=== PATIENT | female | born 1960 | race Caucasian/White ===

== ENCOUNTER 2017-05-24 08:34 | Emergency (ER) | payer OTHER ==
[~2017-05-24] VITALS: Ht 154.9 cm; Wt 85.0 kg
[~2017-05-24 08:34] MED LIST: ADVA250A INH; ALBU.5I NEB; ALBUAER3 INH; CYTO5TAB PO; DIAZ5TAB PO; DILA10IN IMPLANPUMP; FURO20TA PO; LEVE500 PO; METO50TA11 PO; PANT40TA3 PO; PLAV75TA29 PO; PROM12.54 PO; ROSU20 PO; SYNT300T PO; ZOFR4TAB PO
[2017-05-24 08:39] VITALS: BP 131/59; PULSE 87; RESP 16; TEMP 98.8; O2SAT 94
--- NOTE | 2017-05-24 09:06 | RADRPT ---
EXAM DATE/TIME: 05/24/2017 08:54 [place] COMPARISON: No previous studies available for comparison. INDICATIONS : Patient fell complains of pain left elbow. MEDICAL HISTORY : None. SURGICAL HISTORY : None. ENCOUNTER: Initial ACUITY: 1 day PAIN SCORE: 8/10 LOCATION: Left lateral Elbow FINDINGS: Multiple view examination of the left elbow demonstrates no soft tissue swelling, joint effusion, or fracture. The osseous structures are in normal alignment. Bony mineralization is normal. CONCLUSION: Negative exam. No fracture or effusion. Channing Arce MD on May 24, 2017 at 9:04 Board Certified Radiologist. This report was verified electronically.
--- NOTE | 2017-05-24 09:15 | PD ---
HPI Chief Complaint: Fall Time Seen by Provider: 08:54 Travel History International Travel<30 days: No Contact w/Intl Traveler<30days: No Traveled to known affect area: No History of Present Illness HPI The patient was seen and examined in the presence of the nurse. This patient complains of left elbow injury. Duration 5 hours. Approximate for him she got up to use the restroom from sleeping. She got tangled up and tripped over her cane. She landed on her left elbow. She has bruising and swelling there. Denies head injury. PFSH Past Medical History Hx Anticoagulant Therapy: Yes Anemia: Yes Arthritis: Yes (RA) Asthma: Yes Autoimmune Disease: Yes Blood Disorders: Yes ( BLEEDING ULCER ) Bipolar Disorder: Yes Anxiety: Yes Depression: Yes Heart Rhythm Problems: Yes (palpitations) Cancer: No Cardiovascular Problems: Yes High Cholesterol: Yes Chemotherapy: No Chest Pain: No Congestive Heart Failure: No COPD: Yes Cerebrovascular Accident: Yes Diabetes: Yes Diminished Hearing: No Endocrine: Yes Fibromyalgia: Yes Gastrointestinal Disorders: Yes (10 COLONOSCOPIES FOR GI BLEEDING) GERD: Yes Genitourinary: No Headaches: Yes Hepatitis: Yes (HEP C) Hiatal Hernia: Yes (GERD) Herniated Disk: Yes Hypertension: Yes Immune Disorder: Yes (RA) Implanted Vascular Access Dvce: Yes Kidney Stones: No Musculoskeletal: Yes (CHRONIC PAIN, DJD) Neurologic: Yes (BRAIN TUMOR) Psychiatric: Yes (POLYSUBSTANCE ABUSE. 06/04/11 pt denies??) Respiratory: Yes (COPD) Immunizations Current: No Migraines: No Myocardial Infarction: No Pancreatitis: Yes Radiation Therapy: Yes (2003 to thyroid) Seizures: Yes Sleep Apnea: Yes Thyroid Disease: Yes (IRRADIATED) Ulcer: Yes (BLEEDING ULCER) PNEUMOCCOCAL Vaccine (Year): 2010 Menopausal: Yes : 2 Para: 2 Miscarriage: 0 : 0 Tubal Ligation: Yes Past Surgical History Abdominal Surgery: Yes (GASTRECTOMY) AICD: No Appendectomy: No Arteriovenous Shunt: No Body Medical Devices: METAL PLATE IN NECK, PAIN PUMPED - DILAUDID Cardiac Surgery: No Cholecystectomy: No Ear Surgery: No Endocrine Surgery: Yes (THYROID RADIATION IN ) Eye Surgery: No Genitourinary Surgery: Yes Gynecologic Surgery: Yes (LUMPECTOMY) Hysterectomy: Yes Insulin Pump: No Joint Replacement: No Neurologic Surgery: Yes (CERVICAL FUSION ) Oral Surgery: Yes (GUM SX, TRACH) Pacemaker: No Thoracic Surgery: No Other Surgery: Yes ( trach 2007; breast tumor removed 1998, PAIN PUMP-DILAUDID) Social History Alcohol Use: No Tobacco Use: Yes (08/26 PPD and also use the vapor E- cigarette) Substance Use: No (DENIES ) Allergies-Medications (Allergen,Severity, Reaction): Coded Allergies: amcinonide (Unverified Allergy, Severe, SEIZURE, 05/24/17) beclomethasone (Unverified Allergy, Severe, SEIZURE, 05/24/17) betamethasone (Unverified Allergy, Severe, SEIZURE, 05/24/17) bupropion (Unverified Allergy, Severe, seizure, 05/24/17) celecoxib (Unverified Allergy, Severe, itch, 05/24/17) cyclobenzaprine (Unverified Allergy, Severe, SEIZURES, 05/24/17) desoximetasone (Unverified Allergy, Severe, SEIZURE, 05/24/17) dexamethasone (Unverified Allergy, Severe, SEIZURE, 05/24/17) fludrocortisone (Unverified Allergy, Severe, SEIZURE, 05/24/17) flunisolide (Unverified Allergy, Severe, SEIZURE, 05/24/17) fluocinolone acetonide (Unverified Allergy, Severe, SEIZURE, 05/24/17) fluocinonide (Unverified Allergy, Severe, SEIZURE, 05/24/17) fluorometholone (Unverified Allergy, Severe, SEIZURE, 05/24/17) flurandrenolide (Unverified Allergy, Severe, SEIZURE, 05/24/17) fluticasone (Unverified Allergy, Severe, SEIZURE, 05/24/17) PATIENT STATES NOT ALLERGIC TO THIS MED fluticasone furoate (Unverified Allergy, Severe, SEIZURE, 05/24/17) PATIENT STATES NOT ALLERGIC TO THIS MED haloperidol (Unverified Allergy, Severe, SEIZURE, 05/24/17) hydrocortisone (Unverified Allergy, Severe, SEIZURE, 05/24/17) methylprednisolone (Unverified Allergy, Severe, SEIZURE, 05/24/17) mometasone furoate (Unverified Allergy, Severe, SEIZURE, 05/24/17) prednisolone (Unverified Allergy, Severe, SEIZURE, 05/24/17) prednisone (Unverified Allergy, Severe, SEIZURE, 05/24/17) pregabalin (Unverified Allergy, Severe, swelling, 05/24/17) salmeterol (Unverified Allergy, Severe, "WHEEZES", 05/24/17) PATIENT STATES NOT ALLERGIC TO THIS MED triamcinolone (Unverified Allergy, Severe, SEIZURE, 05/24/17) valdecoxib (Unverified Allergy, Severe, itch, 05/24/17) diclofenac (Unverified Adverse Reaction, Severe, ABD PAIN, 05/24/17) etodolac (Unverified Adverse Reaction, Severe, ABD PAIN, 05/24/17) flurbiprofen (Unverified Adverse Reaction, Severe, ABD PAIN, 05/24/17) ibuprofen (Unverified Adverse Reaction, Severe, ABD PAIN, 05/24/17) indomethacin (Unverified Adverse Reaction, Severe, ABD PAIN, 05/24/17) ketoprofen (Unverified Adverse Reaction, Severe, ABD PAIN, 05/24/17) ketorolac (Unverified Adverse Reaction, Severe, ABD PAIN, 05/24/17) naproxen (Unverified Adverse Reaction, Severe, ABD PAIN, 05/24/17) oxaprozin (Unverified Adverse Reaction, Severe, ABD PAIN, 05/24/17) Reported Meds & Prescriptions Reported Meds & Active Scripts Active Reported Synthroid (Levothyroxine Sodium) 300 Mcg Tab 300 Mcg PO DAILY Crestor (Rosuvastatin Calcium) 20 Mg Tab 20 Mg PO DAILY Promethazine (Promethazine HCl) 12.5 Mg Tab 12.5 Mg PO Q6H PRN Pantoprazole (Pantoprazole Sodium) 40 Mg Tab 40 Mg PO DAILY Zofran (Ondansetron HCl) 4 Mg Tab 4 Mg PO Q8HR PRN Metoprolol Succinate ER 24 HR (Metoprolol Succinate) 50 Mg Tab 100 Mg PO DAILY Cytomel (Liothyronine Sodium) 5 Mcg Tab 5 Mcg PO DAILY Keppra (Levetiracetam) 500 Mg Tab 500 Mg PO BID Dilaudid-Hp Inj (Hydromorphone HCl) 10 Mg/Ml Inj 2 Mg IMPLANPUMP Furosemide 20 Mg Tab 20 Mg PO DAILY Diazepam 5 Mg Tab 5 Mg PO TID PRN Plavix (Clopidogrel Bisulfate) 75 Mg Tab 75 Mg PO DAILY Albuterol Neb (Albuterol Sulfate) 2.5 Mg/0.5 Ml Neb 2.5 Mg NEB Q4HR NEB PRN Note: The Albuterol Sulfate Inhalation Solution is concentrated and must be diluted. Read complete instructions carefully before using. Proair Hfa 8.5 GM Inh (Albuterol Sulfate) 90 Mcg/Act Aer 2 Puff INH Q4-6H PRN 108 mcg/actuation Advair Diskus Inh (Fluticasone-Salmeterol Inh) 250-50 Mcg/Blist Aer 1 Puff INH BID Rinse mouth after use. Review of Systems General / Constitutional: No: Fever HENT: No: Headaches Cardiovascular: No: Chest Pain or Discomfort Respiratory: No: Cough Physical Exam Narrative Left elbow: There is some bruising and swelling in the region but decent range of motion and no specific bony tenderness. Pulse and sensation intact in the left arm SKIN: Focused skin assessment reveals no rash or ulcers. Skin is warm and dry. Palpation shows no induration or nodules. GASTROINTESTINAL: Abdomen soft, non-tender, nondistended. Positive bowel sounds. No hepato-splenomegaly, or palpable masses. No guarding. Data Data Last Documented VS Vital Signs Date Time Temp Pulse Resp B/P (MAP) Pulse Ox O2 Delivery O2 Flow Rate FiO2 05/24/17 08:39 98.8 87 16 131/59 (83) 94 Orders Orders Elbow, Complete (4 Vws) (05/24/17 08:42) MDM Medical Decision Making Medical Screen Exam Complete: Yes Emergency Medical Condition: Yes Medical Record Reviewed: Yes Differential Diagnosis Elbow fracture, elbow dislocation, contusion Narrative Course I have reviewed the patient's electronic medical record. She has baseline lethargy from overmedication and polypharmacy She falls frequently She had a fall today but no fracture. Supportive care is discussed. Gradual resolution to baseline is expected. Hopefully at some point this patient will work toward getting off all of these sedating medications Diagnosis Primary Impression: Left elbow contusion Qualified Codes: S50.02XA - Contusion of left elbow, initial encounter Additional Instructions: The patient was advised to follow up with their physician and return if they worsen. Ice and elevate and rest left elbow Recommend reduction in sedating medication Recommended walker use giving your frequent falling Med/Other Pt SpecificInfo: Other Disposition: 01 DISCHARGE HOME Condition: Stable Samuel Toledo MD May 24, 2017 09:15
[2017-05-24] MEDS ORDERED: DILA1LIQ PO (09:19)
[2017-05-31] MEDS ORDERED: FURO40TA PO (14:52)
[2017-05-31] MEDS ORDERED: LEVO-86 PO (14:52)
[2017-05-31] MEDS ORDERED: LIOT50TA2 PO (14:52)
[2017-06-01] MEDS ORDERED: TYLE325T PO (12:28)
[2017-06-01] MEDS ORDERED: DIPH25CA PO (12:30)
[2017-06-01] MEDS ORDERED: FURO10IN IV PUSH (12:33)
== END 2017-05-24 09:32 | disposition home or self-care (01) ==
LOC: PHED 08:34
DX: S50.02XA Contusion of left elbow, initial encounter (principal); W01.0XXA Fall on same level from slipping, tripping and stumbling without subsequent striking against object, initial encounter; Z79.01 Long term (current) use of anticoagulants; Z86.73 Personal history of transient ischemic attack (TIA), and cerebral infarction without residual deficits; I10 Essential (primary) hypertension; J44.9 Chronic obstructive pulmonary disease, unspecified; B19.20 Unspecified viral hepatitis C without hepatic coma; E11.9 Type 2 diabetes mellitus without complications; E78.00 Pure hypercholesterolemia, unspecified; M79.7 Fibromyalgia; F17.210 Nicotine dependence, cigarettes, uncomplicated
CPT/HCPCS: 73080; 99283

== ENCOUNTER 2017-07-11 14:12 | Emergency (ER) | payer OTHER ==
[~2017-07-11] VITALS: Ht 154.9 cm; Wt 80.0 kg
[~2017-07-11 14:12] MED LIST changes: -CYTO5TAB PO; -DILA10IN IMPLANPUMP; +DIPH25CA PO; +FURO10IN IV PUSH; -FURO20TA PO; +FURO40TA PO; +LEVO-86 PO; +LIOT50TA2 PO; +METO1TAB9 PO; -METO50TA11 PO; -SYNT300T PO; +TYLE325T PO
[2017-07-11 14:22] VITALS: BP 98/54; PULSE 70; RESP 16; TEMP 98.1; O2SAT 95
[2017-07-11] MEDS ORDERED: SODIUM CHLOR 0.9% 1000 ML INJ 1,000 ML IV ONE (14:40)
[2017-07-11] MEDS ORDERED: SODIUM CHLORIDE 0.9% FLUSH 10 ML FLUSH IVF PRN (14:45)
--- NOTE | 2017-07-11 14:46 | PD ---
HPI Chief Complaint: Fall Time Seen by Provider: 14:28 Travel History International Travel<30 days: No Contact w/Intl Traveler<30days: No Traveled to known affect area: No History of Present Illness HPI The patient is a 56-year-old female who presents to the emergency department after a fall at home. The patient has a history of multiple chronic medical problems including seizures and chronic pain, states she recently had a pain pump placed that provides Dilaudid for her chronic pain. The patient also states she is placed on hospice because of her multiple comorbidities and need for help at home. The patient normally walks with a cane and/or walker. The patient states he tripped and fell last night wall walking with her cane, fell forward, landing on a tile and would 4. She is unsure if there was a loss of consciousness. She does complain of a right sided headache as well as right periorbital edema. She is able to see out of the right eye, however, now notes it is significantly swollen. She does also note some left toe pain over the fifth digital left toe which was bleeding initially, but is currently resolved. She denies any chest pain, shortness breath, nausea, vomiting, or abdominal pain. She does have a history of symptomatic anemia and recently underwent transfusion 3 weeks ago. She does state she's had a previous surgery where they removed the lower half of her stomach secondary to bleeding, but was advised it was too risky to perform a follow-up endoscopy. Patient does complain of multiple old contusions on the right upper extremity from her previous fall but denies any difficulties in the right upper extremity. The patient's hand rug cleaner was Dr. Gallegos and her primary physician is at [facility] [place]. The patient does take Keppra and Dilantin for history of seizures. She also notes a history of low sodium. PFSH Past Medical History Hx Anticoagulant Therapy: Yes Anemia: Yes Arthritis: Yes (RA) Asthma: Yes Autoimmune Disease: Yes Blood Disorders: Yes ( BLEEDING ULCER ) Bipolar Disorder: Yes Anxiety: Yes Depression: Yes Heart Rhythm Problems: Yes (palpitations) Cancer: No Cardiovascular Problems: Yes High Cholesterol: Yes Chemotherapy: No Chest Pain: No Congestive Heart Failure: Yes COPD: Yes Cerebrovascular Accident: Yes Diabetes: Yes Diminished Hearing: No Endocrine: Yes Fibromyalgia: Yes Gastrointestinal Disorders: Yes (10 COLONOSCOPIES FOR GI BLEEDING) GERD: Yes Genitourinary: No Headaches: Yes Hepatitis: Yes (HEP C) Hiatal Hernia: Yes (GERD) Herniated Disk: Yes Hypertension: Yes Immune Disorder: Yes (RA) Implanted Vascular Access Dvce: Yes Kidney Stones: No Musculoskeletal: Yes (CHRONIC PAIN, DJD) Neurologic: Yes (BRAIN TUMOR) Psychiatric: Yes (POLYSUBSTANCE ABUSE. 06/04/11 pt denies??) Reproductive: No Respiratory: Yes (COPD) Immunizations Current: No Migraines: No Myocardial Infarction: No Pancreatitis: Yes Radiation Therapy: Yes (2003 to thyroid) Renal Failure: No Seizures: Yes Sleep Apnea: Yes Thyroid Disease: Yes (IRRADIATED) Ulcer: Yes (BLEEDING ULCER) PNEUMOCCOCAL Vaccine (Year): 2010 Menopausal: Yes : 2 Para: 2 Miscarriage: 0 : 0 Tubal Ligation: Yes Past Surgical History Abdominal Surgery: Yes (GASTRECTOMY) AICD: No Appendectomy: No Arteriovenous Shunt: No Body Medical Devices: METAL PLATE IN NECK, PAIN PUMPED - DILAUDID Cardiac Surgery: Yes (STENT) Cholecystectomy: No Coronary Stent: Yes Ear Surgery: No Endocrine Surgery: Yes (THYROID RADIATION IN ) Eye Surgery: No Genitourinary Surgery: Yes Gynecologic Surgery: Yes (LUMPECTOMY) Hysterectomy: Yes Insulin Pump: No Joint Replacement: No Neurologic Surgery: Yes (CERVICAL FUSION ) Oral Surgery: Yes (GUM SX, TRACH) Pacemaker: No Thoracic Surgery: No Other Surgery: Yes ( trach 2007; breast tumor removed 1998, PAIN PUMP-DILAUDID) Social History Alcohol Use: No Tobacco Use: Yes (08/26 PPD and also use the vapor E- cigarette) Substance Use: No (DENIES ) Allergies-Medications (Allergen,Severity, Reaction): Coded Allergies: amcinonide (Verified Allergy, Severe, SEIZURE, 07/11/17) beclomethasone (Verified Allergy, Severe, SEIZURE, 07/11/17) betamethasone (Verified Allergy, Severe, SEIZURE, 07/11/17) bupropion (Verified Allergy, Severe, seizure, 07/11/17) celecoxib (Verified Allergy, Severe, itch, 07/11/17) cyclobenzaprine (Verified Allergy, Severe, SEIZURES, 07/11/17) desoximetasone (Verified Allergy, Severe, SEIZURE, 07/11/17) dexamethasone (Verified Allergy, Severe, SEIZURE, 07/11/17) fludrocortisone (Verified Allergy, Severe, SEIZURE, 07/11/17) flunisolide (Verified Allergy, Severe, SEIZURE, 07/11/17) fluocinolone acetonide (Verified Allergy, Severe, SEIZURE, 07/11/17) fluocinonide (Verified Allergy, Severe, SEIZURE, 07/11/17) fluorometholone (Verified Allergy, Severe, SEIZURE, 07/11/17) flurandrenolide (Verified Allergy, Severe, SEIZURE, 07/11/17) fluticasone (Verified Allergy, Severe, SEIZURE, 07/11/17) PATIENT STATES NOT ALLERGIC TO THIS MED fluticasone furoate (Verified Allergy, Severe, SEIZURE, 07/11/17) PATIENT STATES NOT ALLERGIC TO THIS MED haloperidol (Verified Allergy, Severe, SEIZURE, 07/11/17) hydrocortisone (Verified Allergy, Severe, SEIZURE, 07/11/17) methylprednisolone (Verified Allergy, Severe, SEIZURE, 07/11/17) mometasone furoate (Verified Allergy, Severe, SEIZURE, 07/11/17) prednisolone (Verified Allergy, Severe, SEIZURE, 07/11/17) prednisone (Verified Allergy, Severe, SEIZURE, 07/11/17) pregabalin (Verified Allergy, Severe, swelling, 07/11/17) salmeterol (Verified Allergy, Severe, "WHEEZES", 07/11/17) PATIENT STATES NOT ALLERGIC TO THIS MED triamcinolone (Verified Allergy, Severe, SEIZURE, 07/11/17) valdecoxib (Verified Allergy, Severe, itch, 07/11/17) diclofenac (Verified Adverse Reaction, Severe, ABD PAIN, 07/11/17) etodolac (Verified Adverse Reaction, Severe, ABD PAIN, 07/11/17) flurbiprofen (Verified Adverse Reaction, Severe, ABD PAIN, 07/11/17) ibuprofen (Verified Adverse Reaction, Severe, ABD PAIN, 07/11/17) indomethacin (Verified Adverse Reaction, Severe, ABD PAIN, 07/11/17) ketoprofen (Verified Adverse Reaction, Severe, ABD PAIN, 07/11/17) ketorolac (Verified Adverse Reaction, Severe, ABD PAIN, 07/11/17) naproxen (Verified Adverse Reaction, Severe, ABD PAIN, 07/11/17) oxaprozin (Verified Adverse Reaction, Severe, ABD PAIN, 07/11/17) Reported Meds & Prescriptions Reported Meds & Active Scripts Active Reported Furosemide Inj (Furosemide) 10 Mg/Ml Inj 20 Mg IV PUSH ONCE PRN Diphenhydramine (Diphenhydramine HCl) 25 Mg Cap 50 Mg PO ONCE PRN Tylenol (Acetaminophen) 325 Mg Tab 325 Mg PO ONCE PRN Liothyronine (Liothyronine Sodium) 50 Mcg Tab 50 Mcg PO DAILY Synthroid (Levothyroxine Sodium) 137 Mcg Tab 137 Mcg PO DAILY Furosemide 40 Mg Tab 40 Mg PO DAILY Crestor (Rosuvastatin Calcium) 20 Mg Tab 20 Mg PO DAILY Promethazine (Promethazine HCl) 12.5 Mg Tab 12.5 Mg PO Q6H PRN Pantoprazole (Pantoprazole Sodium) 40 Mg Tab 40 Mg PO DAILY Zofran (Ondansetron HCl) 4 Mg Tab 4 Mg PO Q8HR PRN Metoprolol Succinate ER 24 HR (Metoprolol Succinate) 50 Mg Tab 100 Mg PO DAILY Keppra (Levetiracetam) 500 Mg Tab 500 Mg PO BID Diazepam 5 Mg Tab 5 Mg PO TID PRN Plavix (Clopidogrel Bisulfate) 75 Mg Tab 75 Mg PO DAILY Albuterol Neb (Albuterol Sulfate) 2.5 Mg/0.5 Ml Neb 2.5 Mg NEB Q4HR NEB PRN Note: The Albuterol Sulfate Inhalation Solution is concentrated and must be diluted. Read complete instructions carefully before using. Proair Hfa 8.5 GM Inh (Albuterol Sulfate) 90 Mcg/Act Aer 2 Puff INH Q4-6H PRN 108 mcg/actuation Advair Diskus Inh (Fluticasone-Salmeterol Inh) 250-50 Mcg/Blist Aer 1 Puff INH BID Rinse mouth after use. Review of Systems Except as stated in HPI: all other systems reviewed are Neg Eyes: No: Blurred Vision HENT: Positive: Headaches, Lightheadedness, Neck Pain Cardiovascular: No: Chest Pain or Discomfort Respiratory: No: Shortness of Breath Gastrointestinal: No: Nausea, Vomiting, Abdominal Pain Musculoskeletal: Positive: Myalgias Neurologic: Positive: Dizziness, Headache, No: Change in Mentation Physical Exam Narrative GENERAL: Awake, alert, nontoxic-appearing 56 year-old female appears her stated age and is in no acute respiratory distress. SKIN: Focused skin assessment warm/dry. HEAD: Patient has a large area of ecchymosis and swelling over the right periorbital area. Ecchymosis is noted over the right frontal and right temporal area. EYES: Patient does have significant right periorbital edema. However, cannot visualize any subconjunctival hemorrhage on the right. The right and left pupil up with 3 mm and reactive. EOMs out of the right eye. Be intact. She is able to see fingers at a distance of 2 feet from both eyes. ENT: No nasal bleeding or discharge. Mucous membranes pink and moist. NECK: Trachea midline. No JVD. No tenderness of the midline cervical area. CARDIOVASCULAR: Regular rate and rhythm. No murmur appreciated. RESPIRATORY: No accessory muscle use. Clear to auscultation. Breath sounds equal bilaterally. GASTROINTESTINAL: Abdomen soft, non-tender, nondistended. No rebound tenderness. MUSCULOSKELETAL: Old appearing ecchymosis noted of the right humerus. Small superficial puncture wound over the fifth digital left foot, but she is nontender over the affected area. NEUROLOGICAL: Awake and alert. No obvious cranial nerve deficits. Motor grossly within normal limits. Normal speech. Nonfocal. Oriented to person and place. PSYCHIATRIC: Appropriate mood and affect; insight and judgment normal. Data Data Last Documented VS Vital Signs Date Time Temp Pulse Resp B/P (MAP) Pulse Ox O2 Delivery O2 Flow Rate FiO2 07/11/17 16:18 61 16 121/54 (76) 98 Nasal Cannula 2.00 07/11/17 14:22 98.1 Orders Orders Complete Blood Count With Diff (07/11/17 14:40) Alcohol (Ethanol) (07/11/17 14:40) Phenytoin (Dilantin) (07/11/17 14:40) Ct Brain W/O Iv Contrast(Rout) (07/11/17 ) Blood Glucose (07/11/17 14:40) Ecg Monitoring (07/11/17 14:40) Iv Access Insert/Monitor (07/11/17 14:40) Oximetry (07/11/17 14:40) Comprehensive Metabolic Panel (07/11/17 14:40) Sodium Chlor 0.9% 1000 Ml Inj (Ns 1000 M (07/11/17 14:40) Sodium Chloride 0.9% Flush (Ns Flush) (07/11/17 14:45) Urinalysis - C+S If Indicated (07/11/17 14:40) Ct Facial Bones W/O Iv Cont (07/11/17 ) Ct Cerv Spine W/O Contrast (07/11/17 ) Tetanus/Diphtheria Tox Adult (Tetanus/Di (07/11/17 15:00) Ed Discharge Order (07/11/17 16:49) Labs Laboratory Tests Test 07/11/17 15:40 White Blood Count 5.7 TH/MM3 Red Blood Count 3.86 MIL/MM3 Hemoglobin 9.9 GM/DL Hematocrit 31.0 % Mean Corpuscular Volume 80.3 FL Mean Corpuscular Hemoglobin 25.6 PG Mean Corpuscular Hemoglobin Concent 31.9 % Red Cell Distribution Width 19.4 % Platelet Count 203 TH/MM3 Mean Platelet Volume 8.4 FL Neutrophils (%) (Auto) 49.1 % Lymphocytes (%) (Auto) 36.5 % Monocytes (%) (Auto) 8.3 % Eosinophils (%) (Auto) 3.4 % Basophils (%) (Auto) 2.7 % Neutrophils # (Auto) 2.7 TH/MM3 Lymphocytes # (Auto) 2.1 TH/MM3 Monocytes # (Auto) 0.5 TH/MM3 Eosinophils # (Auto) 0.2 TH/MM3 Basophils # (Auto) 0.2 TH/MM3 CBC Comment DIFF FINAL Differential Comment Blood Urea Nitrogen 5 MG/DL Creatinine 0.31 MG/DL Random Glucose 80 MG/DL Total Protein 6.2 GM/DL Albumin 3.1 GM/DL Calcium Level 8.1 MG/DL Alkaline Phosphatase 291 U/L Aspartate Amino Transf (AST/SGOT) 25 U/L Alanine Aminotransferase (ALT/SGPT) 22 U/L Total Bilirubin 0.2 MG/DL Sodium Level 137 MEQ/L Potassium Level 3.7 MEQ/L Chloride Level 102 MEQ/L Carbon Dioxide Level 29.8 MEQ/L Anion Gap 5 MEQ/L Estimat Glomerular Filtration Rate 222 ML/MIN Phenytoin (Dilantin) Level 1.5 MCG/ML Ethyl Alcohol Level LESS THAN 3 MG/DL MDM Medical Decision Making Medical Screen Exam Complete: Yes Emergency Medical Condition: Yes Medical Record Reviewed: Yes Interpretation(s) CT of the brain reveals scalp soft tissue swelling and hematoma. Brain normal. CT of the facial bones reveals prominent soft tissue swelling without evidence for acute fracture. CT of the cervical spine reveals degenerative changes noted without evidence for fracture. Last Impressions Maxillofacial CT 07/11/17 0000 Signed Impressions: Service Date/Time: Tuesday, July 11, 2017 15:02 - CONCLUSION: Prominent soft tissue spine without evidence for acute fracture. Robby Sky MD Head CT 07/11/17 0000 Signed Impressions: Service Date/Time: Tuesday, July 11, 2017 15:02 - CONCLUSION: Scalp soft tissue swelling and hematoma. Brain normal. Robby Sky MD Cervical Spine CT 07/11/17 0000 Signed Impressions: Service Date/Time: Tuesday, July 11, 2017 15:02 - CONCLUSION: Degenerative changes are noted without evidence for fracture. Robby Sky MD Laboratory Tests Test 07/11/17 15:40 White Blood Count 5.7 TH/MM3 Red Blood Count 3.86 MIL/MM3 Hemoglobin 9.9 GM/DL Hematocrit 31.0 % Mean Corpuscular Volume 80.3 FL Mean Corpuscular Hemoglobin 25.6 PG Mean Corpuscular Hemoglobin Concent 31.9 % Red Cell Distribution Width 19.4 % Platelet Count 203 TH/MM3 Mean Platelet Volume 8.4 FL Neutrophils (%) (Auto) 49.1 % Lymphocytes (%) (Auto) 36.5 % Monocytes (%) (Auto) 8.3 % Eosinophils (%) (Auto) 3.4 % Basophils (%) (Auto) 2.7 % Neutrophils # (Auto) 2.7 TH/MM3 Lymphocytes # (Auto) 2.1 TH/MM3 Monocytes # (Auto) 0.5 TH/MM3 Eosinophils # (Auto) 0.2 TH/MM3 Basophils # (Auto) 0.2 TH/MM3 CBC Comment DIFF FINAL Differential Comment Blood Urea Nitrogen 5 MG/DL Creatinine 0.31 MG/DL Random Glucose 80 MG/DL Total Protein 6.2 GM/DL Albumin 3.1 GM/DL Calcium Level 8.1 MG/DL Alkaline Phosphatase 291 U/L Aspartate Amino Transf (AST/SGOT) 25 U/L Alanine Aminotransferase (ALT/SGPT) 22 U/L Total Bilirubin 0.2 MG/DL Sodium Level 137 MEQ/L Potassium Level 3.7 MEQ/L Chloride Level 102 MEQ/L Carbon Dioxide Level 29.8 MEQ/L Anion Gap 5 MEQ/L Estimat Glomerular Filtration Rate 222 ML/MIN Phenytoin (Dilantin) Level 1.5 MCG/ML Ethyl Alcohol Level LESS THAN 3 MG/DL Differential Diagnosis Differential diagnosis includes closed head injury, intracranial hemorrhage, facial fracture, abrasion, contusion, symptomatic anemia, hyponatremia, supratherapeutic Dilantin level. Narrative Course IV was established, labs are drawn and sent, and the patient was placed on cardiac telemetry monitoring and continuous pulse oximetry monitoring. CT of the brain, facial bones, and cervical spine were obtained. Sodium level and H& H were sent to lab. Dilantin level was sent to lab. The patient was placed on IV fluids. The patient's hemoglobin was 9.9, previous hemoglobin was 10.1 on June 01, 2017. CT of the brain, facial bones, cervical spine revealed degenerative changes and soft tissue swelling but no acute hemorrhage or fracture. The patient sodium level is normal. Dilantin level was low, 1.5, I do not believe the patient's symptoms are related to hyponatremia or subtherapeutic Dilantin level. Patient is on multiple medications including her pain pump, she may be overmedicated. She is advised to follow-up with her pain interventional list regards to her medications and the fact they could be sedating. The patient be discharged home. Diagnosis Primary Impression: Closed head injury Qualified Codes: S09.90XA - Unspecified injury of head, initial encounter Additional Impressions: Traumatic periorbital ecchymosis of right eye Qualified Codes: S05.11XA - Contusion of eyeball and orbital tissues, right eye, initial encounter Fall due to stumbling Qualified Codes: W01.0XXA - Fall on same level from slipping, tripping and stumbling without subsequent striking against object, initial encounter Patient Instructions: General Instructions Additional Instructions: Please provide the patient a copy of her CT results and lab results at discharge. Follow-up with your pain interventional list. Return if symptoms worsen or progress. Med/Other Pt SpecificInfo: No Change to Meds Disposition: 01 DISCHARGE HOME Condition: Stable Ion Mena MD Jul 11, 2017 14:46
[2017-07-11] MEDS ORDERED: TETANUS/DIPHTHERIA TOXOID ADULT 0.5 ML VIAL IM ONE (15:00)
--- NOTE | 2017-07-11 15:18 | RADRPT ---
EXAM DATE/TIME: 07/11/2017 15:02 [facility] COMPARISON: CT BRAIN W/O CONTRAST, July 08, 2016, 0:58. INDICATIONS : Stubbed toe and fell. Right periorbital contusion and headache. RADIATION DOSE: 58.19 CTDIvol (mGy) MEDICAL HISTORY : Cerebrovascular disease. Cardiovascular disease Gastroesophageal reflux disease.Anticoagulant therapy . Hypertension. Ulcers. Colitis. SURGICAL HISTORY : Fusion, cervical. Coronary artery stent.Hysterectomy.Gastrectomy. ENCOUNTER: Initial ACUITY: 2 days PAIN SCALE: 6/10 LOCATION: Right cranial TECHNIQUE: Multiple contiguous axial images were obtained of the head. Using automated exposure control and adj ustment of the mA and/or kV according to patient size, radiation dose was kept as low as reasonably a chievable to obtain optimal diagnostic quality images. DICOM format image data is available electro nically for review and comparison. FINDINGS: There is right periorbital soft tissue swelling. The brain is normal in appearance. No hemorrhage, in farct, or mass. A right greater than left frontal scalp hematoma is identified. There are no fracture s. Mastoid air cells are well aerated CONCLUSION: Scalp soft tissue swelling and hematoma. Brain normal. Robby Sky MD on July 11, 2017 at 15:16 Board Certified Radiologist. This report was verified electronically.
--- NOTE | 2017-07-11 15:20 | RADRPT ---
EXAM DATE/TIME: 07/11/2017 15:02 [facility] COMPARISON: No previous studies available for comparison. INDICATIONS : Stubbed toe and fell. Right periorbital contusion and headache. RADIATION DOSE: 25.68 CTDIvol (mGy) MEDICAL HISTORY : Cardiovascular disease. Cerebrovascular disease. Gastroesophageal reflux disease.Anticoagulant thera py. Hypertension. Ulcers. Colitis. SURGICAL HISTORY : Fusion, cervical. Hysterectomy.Coronary artery stent.Gastrectomy. ENCOUNTER: Initial ACUITY: 2 days PAIN SCORE: 6/10 LOCATION: Right facial TECHNIQUE: Volumetric scanning of the facial bones was performed. Using automated exposure control and adjustme nt of the mA and/or kV according to patient size, radiation dose was kept as low as reasonably achiev able to obtain optimal diagnostic quality images. DICOM format image data is available electronicall y for review and comparison. FINDINGS: ORBITS: The orbital and infraorbital osseous structures are intact. The retroconal structures have a normal configuration. No radiopaque foreign bodies are seen. NASAL BONE: The nasal bone and maxillary spine are intact ZYGOMATIC ARCHES: Symmetric without evidence of fracture. SINUSES: The maxillary, ethmoid and frontal sinuses are intact. No air-fluid levels seen. NASAL CAVITY: The nasal septum is intact and midline. The lacrimal ducts are intact. SOFT TISSUES: There is prominent soft tissue swelling along the right temporal and periorbital soft tissues extendi ng into the right lateral facial soft tissues. The paranasal sinuses and mastoid air cells are well a erated. No fractures are seen. The patient has had previous anterior cervical discectomy and interver tebral fusion at C4-C6. INTRACRANIAL: No intracranial air seen. CRIBIFORM PLATE: Grossly intact. CONCLUSION: Prominent soft tissue spine without evidence for acute fracture. Robby Sky MD on July 11, 2017 at 15:17 Board Certified Radiologist. This report was verified electronically.
--- NOTE | 2017-07-11 15:29 | RADRPT ---
EXAM DATE/TIME: 07/11/2017 15:02 [facility] COMPARISON: CT CERVICAL SPINE W/O CONTRAST, July 08, 2016, 0:58. INDICATIONS : Stubbed toe and fell. Right periorbital contusion and headache. RADIATION DOSE: 26.43 CTDIvol (mGy) MEDICAL HISTORY : Cardiovascular disease. Cerebrovascular disease. Gastroesophageal reflux disease.Anticoagulant thera py. Hypertension. Ulcers. Colitis. SURGICAL HISTORY : Coronary artery stent. Fusion, cervical.Hysterectomy.Gastrectomy. ENCOUNTER: Initial ACUITY: 2 days PAIN SCALE: 6/10 LOCATION: neck TECHNIQUE: Volumetric scanning of the cervical spine was performed. Multiplanar reconstructions in the sagittal, coronal and oblique axial planes were performed. Using automated exposure control and adjustment o f the mA and/or kV according to patient size, radiation dose was kept as low as reasonably achievable to obtain optimal diagnostic quality images. DICOM format image data is available electronically f or review and comparison. FINDINGS: The patient has had previous anterior cervical discectomy and intervertebral fusion of C4-C6. Hardwar e intact. No prevertebral soft tissue swelling or compression deformity. Mild degenerative disc disea se at C3-4 and C6-7 noted. Moderate facet hypertrophic changes are seen at C2-3 and C3-4 on the left. The odontoid process is intact. Mild uncovertebral hypertrophy at C3-4 and C6-7. Note is made of mod erate to severe enal stenosis suspected posterior to C4-5 secondary to posterior osteophytic ridging CONCLUSION: Degenerative changes are noted without evidence for fracture. Robby Sky MD on July 11, 2017 at 15:26 Board Certified Radiologist. This report was verified electronically.
[2017-07-11 15:39] VITALS: O2SAT 93
[2017-07-11 15:44] LABS: AUTOMATED NEUTROPHIL # 2.7 TH/MM3 (1.8-7.7); BASOPHIL # 0.2 TH/MM3 (0-0.2); BASOPHIL % 2.7 % (0.0-2.0); EOSINOPHIL # 0.2 TH/MM3 (0-0.4); EOSINOPHIL % 3.4 % (0.0-4.0); HEMO FLAGS DIFF FINAL; LYMPH % 36.5 % (9.0-44.0); LYMPHOCYTE # 2.1 TH/MM3 (1.0-4.8); MEAN CELL VOLUME 80.3 FL (80.0-100.0); MEAN CORPUSCULAR HEMOGLOBIN 25.6 PG (27.0-34.0); MEAN CORPUSCULAR HGB CONC 31.9 % (32.0-36.0); MONO % 8.3 % (0.0-8.0); NEUT % 49.1 % (16.0-70.0); PLATELET COUNT 203 TH/MM3 (150-450); RED BLOOD COUNT 3.86 MIL/MM3 (4.00-5.30); RED CELL DISTRIBUTION WIDTH 19.4 % (11.6-17.2); WHITE BLOOD COUNT 5.7 TH/MM3 (4.0-11.0)
[2017-07-11 15:53] LABS: CHLORIDE 102 MEQ/L (98-107); POTASSIUM 3.7 MEQ/L (3.5-5.1); SODIUM (NA) 137 MEQ/L (136-145)
[2017-07-11 15:56] LABS: ANION GAP 5 MEQ/L (5-15); BICARBONATE 29.8 MEQ/L (21.0-32.0)
[2017-07-11 15:57] LABS: BLOOD UREA NITROGEN 5 MG/DL (7-18)
[2017-07-11 15:59] LABS: ALT (GPT) 22 U/L (10-53); AST (GOT) 25 U/L (15-37); GLOMERULAR FILTRATION RATE 222 ML/MIN (>89)
[2017-07-11 16:01] LABS: TOTAL BILIRUBIN ADULT 0.2 MG/DL (0.2-1.0)
[2017-07-11 16:02] LABS: ALKALINE PHOSPHATASE 291 U/L (45-117)
[2017-07-11 16:07] LABS: ALCOHOL LESS THAN 3 MG/DL (0-5)
[2017-07-11 16:18] VITALS: BP 121/54; PULSE 61; RESP 16; O2SAT 98
== END 2017-07-11 17:26 | disposition home or self-care (01) ==
LOC: PHED 14:12
DX: S05.11XA Contusion of eyeball and orbital tissues, right eye, initial encounter (principal); F17.200 Nicotine dependence, unspecified, uncomplicated; W01.0XXA Fall on same level from slipping, tripping and stumbling without subsequent striking against object, initial encounter; Y93.01 Activity, walking, marching and hiking; Y92.009 Unspecified place in unspecified non-institutional (private) residence as the place of occurrence of the external cause; Z79.899 Other long term (current) drug therapy
CPT/HCPCS: 70450; 70486; 72125; 80053; 80185; 80307; 85025; 96360; 99285; J7030

== ENCOUNTER 2017-07-27 01:23 | Emergency (ER) | payer OTHER ==
[~2017-07-27] VITALS: Ht 154.9 cm; Wt 68.2 kg
[2017-07-27 01:30] VITALS: BP 132/65; PULSE 65; RESP 18; TEMP 97.7; O2SAT 96
[2017-07-27] MEDS ORDERED: ceFAZolin 2 GM PREMIX 50 ML IV ONE (01:45)
[2017-07-27] MEDS ORDERED: SODIUM CHLORIDE 0.9% FLUSH 10 ML FLUSH IVF PRN (01:45)
[2017-07-27 02:07] LABS: HEMO FLAGS AUTO DIFF
[2017-07-27] MEDS ORDERED: DILA2TAB4 PO (02:14)
[2017-07-27] MEDS ORDERED: DILA30CA PO (02:14)
[2017-07-27 02:15] LABS: POTASSIUM 3.6 MEQ/L (3.5-5.1)
[2017-07-27 02:18] LABS: BICARBONATE 31.7 MEQ/L (21.0-32.0)
--- NOTE | 2017-07-27 02:34 | RADRPT ---
EXAM DATE/TIME: 07/27/2017 01:49 [facility] COMPARISON: CHEST SINGLE AP, October 04, 2015, 11:22. INDICATIONS : Trauma, fall. MEDICAL HISTORY : Chronic obstructive pulmonary disease. SURGICAL HISTORY : None. ENCOUNTER: Initial ACUITY: 1 day PAIN SCORE: Non-responsive. LOCATION: Bilateral chest FINDINGS: A single view of the chest demonstrates the lungs to be symmetrically aerated without evidence of mas s, infiltrate or effusion. The cardiomediastinal contours are unremarkable. Osseous structures are intact. CONCLUSION: No acute disease. Micky Banegas MD on July 27, 2017 at 2:33 Board Certified Radiologist. This report was verified electronically.
--- NOTE | 2017-07-27 02:35 | RADRPT ---
EXAM DATE/TIME: 07/27/2017 01:49 [facility] COMPARISON: No previous studies available for comparison. INDICATIONS : Trauma, fall. MEDICAL HISTORY : None. SURGICAL HISTORY : Pain pump. ENCOUNTER: Initial ACUITY: 1 day PAIN SCORE: Non-responsive. LOCATION: Bilateral pelvis FINDINGS: A single AP view of the pelvis was obtained and demonstrates fractures of the superior and inferior p ubic rami bilaterally. The hips are otherwise intact in appearance. The sacrum appears unremarkable. CONCLUSION: Fractures of the superior and inferior pubic rami bilaterally. Micky Banegas MD on July 27, 2017 at 2:33 Board Certified Radiologist. This report was verified electronically.
[2017-07-27 03:00] VITALS: BP 145/66; PULSE 71; RESP 16; O2SAT 98
--- NOTE | 2017-07-27 03:19 | PD ---
HPI Chief Complaint: Fall Time Seen by Provider: 01:37 Travel History International Travel<30 days: No Contact w/Intl Traveler<30days: No Traveled to known affect area: No History of Present Illness HPI 57-year-old female presents to the emergency department from home by EMS transport after a non-syncopal trip and fall. Patient reportedly states she's been falling frequently of late. Patient is on the care of hospice for end- stage vascular disease. Patient didn't hit her head and sustained a scalp laceration. Patient with multiple various aged facial bruises also noted and various bruising about the body with various stage of feeling. Patient also complains of back pain and pelvis pain. Patient denies any arm or leg pain. Patient reports as well as recently falling and hitting her head she also has a pelvic fracture. Patient is prescribed Plavix for cardiovascular disease. Patient also takes aspirin. PFSH Past Medical History Narrative Medical Plavix therapy anemia rheumatoid arthritis dyslipidemia CHF COPD CVA diabetes asthma bipolar disorder peptic ulcer disease GI bleed seizure sleep apnea hepatitis C tubal ligation hysterectomy coronary stent Dilaudid pump cervical fusion; tobacco use; nursing notes reviewed Hx Anticoagulant Therapy: Yes Anemia: Yes Arthritis: Yes (RA) Asthma: Yes Autoimmune Disease: Yes Blood Disorders: Yes ( BLEEDING ULCER ) Bipolar Disorder: Yes Anxiety: Yes Depression: Yes Heart Rhythm Problems: Yes (palpitations) Cancer: No Cardiovascular Problems: Yes High Cholesterol: Yes Chemotherapy: No Chest Pain: No Congestive Heart Failure: Yes COPD: Yes Cerebrovascular Accident: Yes Diabetes: Yes Patient Takes Glucophage: No Diminished Hearing: No Endocrine: Yes Fibromyalgia: Yes Gastrointestinal Disorders: Yes (10 COLONOSCOPIES FOR GI BLEEDING) GERD: Yes Genitourinary: No Headaches: Yes Hepatitis: Yes (HEP C) Hiatal Hernia: Yes (GERD) Herniated Disk: Yes Hypertension: Yes Immune Disorder: Yes (RA) Implanted Vascular Access Dvce: Yes Kidney Stones: No Medical other: Yes (CROHN'S, SEIZURES, ANEMIA, HEP C) Musculoskeletal: Yes (CHRONIC PAIN, DJD) Neurologic: Yes (BRAIN TUMOR) Psychiatric: Yes (POLYSUBSTANCE ABUSE. 06/04/11 pt denies??) Reproductive: No Respiratory: Yes (COPD) Immunizations Current: No Migraines: No Myocardial Infarction: No Pancreatitis: Yes Radiation Therapy: Yes (2004 to thyroid) Renal Failure: No Seizures: Yes Sleep Apnea: Yes Thyroid Disease: Yes (IRRADIATED) Ulcer: Yes (BLEEDING ULCER) PNEUMOCCOCAL Vaccine (Year): 2010 ?: Not Menopausal: Yes : 2 Para: 2 Miscarriage: 0 : 0 Tubal Ligation: Yes Past Surgical History Abdominal Surgery: Yes (GASTRECTOMY) AICD: No Appendectomy: No Arteriovenous Shunt: No Body Medical Devices: METAL PLATE IN NECK, PAIN PUMPED - DILAUDID Cardiac Surgery: Yes (STENT) Cholecystectomy: No Coronary Stent: Yes Ear Surgery: No Endocrine Surgery: Yes (THYROID RADIATION IN 04) Eye Surgery: No Genitourinary Surgery: Yes Gynecologic Surgery: Yes (LUMPECTOMY) Hysterectomy: Yes Insulin Pump: No Joint Replacement: No Neurologic Surgery: Yes (CERVICAL FUSION ) Oral Surgery: Yes (GUM SX, TRACH) Pacemaker: No Thoracic Surgery: No Other Surgery: Yes ( trach 2007; breast tumor removed 1998, PAIN PUMP-DILAUDID) Social History Alcohol Use: No Tobacco Use: Yes (08/26 PPD and also use the vapor E- cigarette) Substance Use: No (DENIES ) Allergies-Medications (Allergen,Severity, Reaction): Coded Allergies: amcinonide (Verified Allergy, Severe, SEIZURE, 07/27/17) beclomethasone (Verified Allergy, Severe, SEIZURE, 07/27/17) betamethasone (Verified Allergy, Severe, SEIZURE, 07/27/17) bupropion (Verified Allergy, Severe, seizure, 07/27/17) celecoxib (Verified Allergy, Severe, itch, 07/27/17) cyclobenzaprine (Verified Allergy, Severe, SEIZURES, 07/27/17) desoximetasone (Verified Allergy, Severe, SEIZURE, 07/27/17) dexamethasone (Verified Allergy, Severe, SEIZURE, 07/27/17) fludrocortisone (Verified Allergy, Severe, SEIZURE, 07/27/17) flunisolide (Verified Allergy, Severe, SEIZURE, 07/27/17) fluocinolone acetonide (Verified Allergy, Severe, SEIZURE, 07/27/17) fluocinonide (Verified Allergy, Severe, SEIZURE, 07/27/17) fluorometholone (Verified Allergy, Severe, SEIZURE, 07/27/17) flurandrenolide (Verified Allergy, Severe, SEIZURE, 07/27/17) fluticasone (Verified Allergy, Severe, SEIZURE, 07/27/17) PATIENT STATES NOT ALLERGIC TO THIS MED fluticasone furoate (Verified Allergy, Severe, SEIZURE, 07/27/17) PATIENT STATES NOT ALLERGIC TO THIS MED haloperidol (Verified Allergy, Severe, SEIZURE, 07/27/17) hydrocortisone (Verified Allergy, Severe, SEIZURE, 07/27/17) methylprednisolone (Verified Allergy, Severe, SEIZURE, 07/27/17) mometasone furoate (Verified Allergy, Severe, SEIZURE, 07/27/17) prednisolone (Verified Allergy, Severe, SEIZURE, 07/27/17) prednisone (Verified Allergy, Severe, SEIZURE, 07/27/17) pregabalin (Verified Allergy, Severe, swelling, 07/27/17) salmeterol (Verified Allergy, Severe, "WHEEZES", 07/27/17) PATIENT STATES NOT ALLERGIC TO THIS MED triamcinolone (Verified Allergy, Severe, SEIZURE, 07/27/17) valdecoxib (Verified Allergy, Severe, itch, 07/27/17) diclofenac (Verified Adverse Reaction, Severe, ABD PAIN, 07/27/17) etodolac (Verified Adverse Reaction, Severe, ABD PAIN, 07/27/17) flurbiprofen (Verified Adverse Reaction, Severe, ABD PAIN, 07/27/17) ibuprofen (Verified Adverse Reaction, Severe, ABD PAIN, 07/27/17) indomethacin (Verified Adverse Reaction, Severe, ABD PAIN, 07/27/17) ketoprofen (Verified Adverse Reaction, Severe, ABD PAIN, 07/27/17) ketorolac (Verified Adverse Reaction, Severe, ABD PAIN, 07/27/17) naproxen (Verified Adverse Reaction, Severe, ABD PAIN, 07/27/17) oxaprozin (Verified Adverse Reaction, Severe, ABD PAIN, 07/27/17) Reported Meds & Prescriptions Reported Meds & Active Scripts Active Reported Dilaudid (Hydromorphone HCl) 2 Mg Tab 2 Mg PO Q4H PRN Dilantin (Phenytoin Extended) 30 Mg Cap 30 Mg PO TID Tylenol (Acetaminophen) 325 Mg Tab 325 Mg PO ONCE PRN Liothyronine (Liothyronine Sodium) 50 Mcg Tab 50 Mcg PO DAILY Synthroid (Levothyroxine Sodium) 137 Mcg Tab 137 Mcg PO DAILY Furosemide 40 Mg Tab 40 Mg PO DAILY Crestor (Rosuvastatin Calcium) 20 Mg Tab 20 Mg PO DAILY Promethazine (Promethazine HCl) 12.5 Mg Tab 12.5 Mg PO Q6H PRN Pantoprazole (Pantoprazole Sodium) 40 Mg Tab 40 Mg PO DAILY Zofran (Ondansetron HCl) 4 Mg Tab 4 Mg PO Q8HR PRN Metoprolol Succinate ER 24 HR (Metoprolol Succinate) 50 Mg Tab 100 Mg PO DAILY Keppra (Levetiracetam) 500 Mg Tab 500 Mg PO BID Diazepam 5 Mg Tab 5 Mg PO TID PRN Plavix (Clopidogrel Bisulfate) 75 Mg Tab 75 Mg PO DAILY Albuterol Neb (Albuterol Sulfate) 2.5 Mg/0.5 Ml Neb 2.5 Mg NEB Q4HR NEB PRN Note: The Albuterol Sulfate Inhalation Solution is concentrated and must be diluted. Read complete instructions carefully before using. Proair Hfa 8.5 GM Inh (Albuterol Sulfate) 90 Mcg/Act Aer 2 Puff INH Q4-6H PRN 108 mcg/actuation Advair Diskus Inh (Fluticasone-Salmeterol Inh) 250-50 Mcg/Blist Aer 1 Puff INH BID Rinse mouth after use. Review of Systems Except as stated in HPI: all other systems reviewed are Neg General / Constitutional: No: Fever, Chills Eyes: No: Diploplia, Blurred Vision, Photophobia HENT: Positive: Neck Pain, No: Headaches Cardiovascular: No: Chest Pain or Discomfort Respiratory: No: Shortness of Breath Gastrointestinal: No: Nausea, Vomiting, Abdominal Pain Genitourinary: No: Flank Pain Musculoskeletal: Positive: Myalgias, Arthralgias, Pain (back pain pelvic pain) Skin: No Rash Neurologic: Positive: Weakness, No: Dizziness, Syncope, Focal Abnormalities, Coordination Problem Psychiatric: No: Anxiety Endocrine: No: Heat Intolerance Hematologic/Lymphatic: Positive: Easy Bruising Physical Exam Narrative GENERAL: Well-developed ill-appearing female in no acute distress no respiratory distress with bandage on her scalp GCS 15 SKIN: Warm and dry. Multiple various staged of healing ecchymoses HEAD: Atraumatic. Normocephalic. Scalp laceration 4.5 cm L-shaped no bony abnormality.. EYES: Pupils equal and round. No scleral icterus. No injection or drainage. ENT: No nasal bleeding or discharge. Mucous membranes pink and moist. NECK: Trachea midline. No JVD. Tender to palpation along these paracervical musculature without point tenderness along the cervical spine no bony step-off cervical collar applied CARDIOVASCULAR: Regular rate and rhythm. RESPIRATORY: No accessory muscle use. Clear to auscultation. Breath sounds equal bilaterally. GASTROINTESTINAL: Abdomen soft, non-tender, nondistended. Hepatic and splenic margins not palpable. MUSCULOSKELETAL: Extremities without clubbing, cyanosis, or edema. No obvious deformities. Back soreness to palpation along the thoracic and lumbar spine but no bony step-off. NEUROLOGICAL: Awake and alert. No obvious cranial nerve deficits. Motor grossly within normal limits. Five out of 5 muscle strength in the arms and legs. Normal speech. PSYCHIATRIC: Appropriate mood and affect; insight and judgment normal. Data Data Last Documented VS Vital Signs Date Time Temp Pulse Resp B/P (MAP) Pulse Ox O2 Delivery O2 Flow Rate FiO2 07/27/17 03:00 71 16 145/66 (92) 98 Room Air 07/27/17 01:30 97.7 Orders Orders Basic Metabolic Panel (Bmp) (07/27/17 01:37) Complete Blood Count With Diff (07/27/17 01:37) Prothrombin Time / Inr (Pt) (07/27/17 01:37) Act Partial Throm Time (Ptt) (07/27/17 01:37) Type And Screen (07/27/17 01:37) Chest, Single Ap (07/27/17 01:37) Pelvis, Ap Only (Routine) (07/27/17 01:37) Ct Brain W/O Iv Contrast(Rout) (07/27/17 01:37) Ct Cerv Spine W/O Contrast (07/27/17 01:37) Ct Facial Bones W/O Iv Cont (07/27/17 01:37) Iv Access Insert/Monitor (07/27/17 01:37) Ecg Monitoring (07/27/17 01:37) Oximetry (07/27/17 01:37) Oxygen Administration (07/27/17 01:37) Cefazolin 2 Gm Premix (Ancef 2 Gm Premix (07/27/17 01:45) Sodium Chloride 0.9% Flush (Ns Flush) (07/27/17 01:45) Ct Abd/Pel W/O Iv Contrast (07/27/17 ) Acetaminophen (Tylenol) (07/27/17 04:00) Lidocaine Pf 1% Inj (Xylocaine-Mpf 1% In (07/27/17 04:30) Urinalysis - C+S If Indicated (07/27/17 04:40) Complete Blood Count With Diff (07/27/17 05:00) Labs Laboratory Tests Test 07/27/17 01:40 07/27/17 04:40 07/27/17 05:10 White Blood Count TH/MM3 5.2 TH/MM3 Corrected White Blood Count TH/MM3 Red Blood Count MIL/MM3 3.99 MIL/MM3 Hemoglobin GM/DL 10.3 GM/DL Hematocrit % 32.5 % Mean Corpuscular Volume FL 81.4 FL Mean Corpuscular Hemoglobin PG 25.7 PG Mean Corpuscular Hemoglobin Concent % 31.6 % Red Cell Distribution Width % 18.7 % Platelet Count TH/MM3 209 TH/MM3 Mean Platelet Volume FL 8.2 FL Neutrophils (%) (Auto) % 49.3 % Lymphocytes (%) (Auto) % 39.1 % Monocytes (%) (Auto) % 6.4 % Eosinophils (%) (Auto) % 4.0 % Basophils (%) (Auto) % 1.2 % Neutrophils # (Auto) TH/MM3 2.6 TH/MM3 Lymphocytes # (Auto) TH/MM3 2.0 TH/MM3 Monocytes # (Auto) TH/MM3 0.3 TH/MM3 Eosinophils # (Auto) TH/MM3 0.2 TH/MM3 Basophils # (Auto) TH/MM3 0.1 TH/MM3 CBC Comment AUTO DIFF DIFF FINAL Differential Comment Blood Urea Nitrogen 7 MG/DL Creatinine 0.38 MG/DL Random Glucose 107 MG/DL Calcium Level 8.1 MG/DL Sodium Level 137 MEQ/L Potassium Level 3.6 MEQ/L Chloride Level 100 MEQ/L Carbon Dioxide Level 31.7 MEQ/L Anion Gap 5 MEQ/L Estimat Glomerular Filtration Rate 175 ML/MIN MDM Medical Decision Making Medical Screen Exam Complete: Yes Emergency Medical Condition: Yes Medical Record Reviewed: Yes Interpretation(s) Last Impressions Pelvis X-Ray 07/27/17 0137 Signed Impressions: Service Date/Time: Thursday, July 27, 2017 01:49 - CONCLUSION: Fractures of the superior and inferior pubic rami bilaterally. Micky Banegas MD Maxillofacial CT 07/27/17136 Signed Impressions: Service Date/Time: Thursday, July 27, 2017 02:03 - CONCLUSION: Soft tissue swelling with no acute fracture or malalignment. Micky Banegas MD Head CT [id number]/27/[id number] Signed Impressions: Service Date/Time: Thursday, July 27, 2017 02:03 - CONCLUSION: Soft tissue swelling of the right frontal bone with no acute fracture or hemorrhage Micky Banegas MD Chest X-Ray [id number]/27/17136 Signed Impressions: Service Date/Time: Thursday, July 27, 2017 01:49 - CONCLUSION: No acute disease. Micky Banegas MD Cervical Spine CT [id number]/27/17136 Signed Impressions: Service Date/Time: Thursday, July 27, 2017 02:03 - CONCLUSION: Negative trauma CT. Micky Banegas MD Abdomen/Pelvis CT 07/27/17 0000 Signed Impressions: Service Date/Time: Thursday, July 27, 2017 02:56 - CONCLUSION: 1. No evidence of visceral injury on this noncontrast exam. 2. Bilateral sacral insufficiency fractures right greater than left. 3. Bilateral ununited fractures of the superior and inferior pubic rami. 4. Postsurgical changes involving the stomach. 5. Stable appearance of the pancreas calcifications and prominence of the duct consistent with chronic pancreatitis. Micky Banegas MD CBC & BMP Diagram 07/27/17 01:40 Calcium Level 8.1 L Vital Signs Date Time Temp Pulse Resp B/P (MAP) Pulse Ox O2 Delivery O2 Flow Rate FiO2 07/27/17 03:00 71 16 145/66 (92) 98 Room Air 07/27/17 01:58 98 Room Air 07/27/17 01:30 97.7 65 18 132/65 (87) 96 Differential Diagnosis Minor closed head injury ICH cervical spine sprain strain fracture facial fracture cord contusion pelvic fracture history of pelvic fracture Narrative Course Imaging studies ordered Patient identified on pelvic exam to have a pelvic fracture therefore sent for CT abdomen and pelvis CT abdomen and pelvis identifies no acute fractures and evidence of old bilateral superior and inferior rami fracture and sacral insufficiency fractures. The patient is informed of imaging results including CT ray noncontrast CT cervical spine and CT facial bones as well as CT abdomen and pelvis and reports that she knows she has a pelvic fracture she has had this since a fall approximately a month ago when she was seen at [facility] preferred hospital which time the [place] pelvic fractures tonight she was walking with her walker when she had her fall and she was able to get up with the assistance of her mother and continue to walk because she had a laceration to her scalp that is why she called be transported to Hospital for laceration repair. Patient states she's been having chronic pelvic pain previous fractures does not report increased pain in the pelvis since her fall. Patient able to stand and walk to bedside commode and get back on the exam stretcher. Laceration repair performed. Confirmed with reading radiologist imaging studies are consistent with multiple old fractures of the pelvis. Patient able to ambulate in exam room with cane assistive device. Procedures Procedure Narrative LACERATION LOCATION: Posterior scalp LENGTH: 4.5 cm L-shaped NUMBER OF STITCHES/KWAKU: 9 REPAIR: The area of the laceration was prepped with Betadine and sterilely draped. The laceration was infiltrated with 1% lidocaine plain. The wound was copiously irrigated and explored without evidence of foreign body, tendon injury or neurovascular injury. The wound was closed using kwaku. This was a single layer repair. A sterile dressing was applied. The patient was advised to keep the dressing clean and dry. Patient tolerated the procedure well. Diagnosis Primary Impression: Closed head injury Qualified Codes: S09.90XA - Unspecified injury of head, initial encounter Additional Impressions: Scalp laceration Qualified Codes: S01.01XA - Laceration without foreign body of scalp, initial encounter Closed pelvic fracture Referrals: Primary Care Physician 1 day Patient Instructions: General Instructions Additional Instructions: Follow head injury precautions 24 hours Use assistive device/walker at all times with ambulation Follow-up with your primary care provider Follow-up with your half hospice provider Return to the emergency department for any concerns or change in condition; such as pain fever vomiting or change in condition Wound check of scalp laceration at 2 days and staple removal at 5-7 days May apply topical antibiotic ointment to wound site May use acetaminophen/Tylenol for additional pain management and pain relief Monitor temperature every 4 hours with thermometer and take acetaminophen/ Tylenol as needed for fever 100.4F or greater Med/Other Pt SpecificInfo: No Change to Meds Disposition: 01 DISCHARGE HOME Condition: Stable Zaida Wesley MD Jul 27, 2017 03:19
--- NOTE | 2017-07-27 03:20 | RADRPT ---
EXAM DATE/TIME: 07/27/2017 02:03 [facility] COMPARISON: CT BRAIN W/O CONTRAST, July 11, 2017, 15:02. INDICATIONS : Trauma. Fall. RADIATION DOSE: 65.42 CTDIvol (mGy) MEDICAL HISTORY : Cardiovascular disease. Cerebrovascular disease. Hypertension. SURGICAL HISTORY : Coronary artery stent. ENCOUNTER: Initial ACUITY: 1 day PAIN SCALE: 10/10 LOCATION: Bilateral cranial TECHNIQUE: Multiple contiguous axial images were obtained of the head. Using automated exposure control and adj ustment of the mA and/or kV according to patient size, radiation dose was kept as low as reasonably a chievable to obtain optimal diagnostic quality images. DICOM format image data is available electro nically for review and comparison. FINDINGS: CEREBRUM: The ventricles are normal for age. No evidence of midline shift, mass lesion, hemorrhage or acute in farction. No extra-axial fluid collections are seen. POSTERIOR FOSSA: The cerebellum and brainstem are intact. The 4th ventricle is midline. The cerebellopontine angle i s unremarkable. EXTRACRANIAL: The visualized portion of the orbits is intact. SKULL: The calvaria is intact. No evidence of skull fracture. There is soft tissue swelling over the right frontal bone. CONCLUSION: Soft tissue swelling of the right frontal bone with no acute fracture or hemorrhage Micky Banegas MD on July 27, 2017 at 3:16 Board Certified Radiologist. This report was verified electronically.
--- NOTE | 2017-07-27 03:21 | RADRPT ---
EXAM DATE/TIME: 07/27/2017 02:03 [facility] COMPARISON: CT FACIAL BONES W/O CONTRAST, July 11, 2017, 15:02. INDICATIONS : Trauma. Fall. RADIATION DOSE: 25.48 CTDIvol (mGy) MEDICAL HISTORY : Cerebrovascular disease. Cardiovascular disease Hypertension. SURGICAL HISTORY : Fusion, cervical. Coronary artery stent. ENCOUNTER: Initial ACUITY: 1 day PAIN SCORE: 10/10 LOCATION: Bilateral facial TECHNIQUE: Volumetric scanning of the facial bones was performed. Using automated exposure control and adjustme nt of the mA and/or kV according to patient size, radiation dose was kept as low as reasonably achiev able to obtain optimal diagnostic quality images. DICOM format image data is available electronicall y for review and comparison. FINDINGS: ORBITS: The orbital and infraorbital osseous structures are intact. The retroconal structures have a normal configuration. No radiopaque foreign bodies are seen. NASAL BONE: The nasal bone and maxillary spine are intact ZYGOMATIC ARCHES: Symmetric without evidence of fracture. SINUSES: The maxillary, ethmoid and frontal sinuses are intact. No air-fluid levels seen. NASAL CAVITY: The nasal septum is intact and midline. The lacrimal ducts are intact. SOFT TISSUES: No radiopaque foreign bodies seen. Soft tissue swelling is noted over the right frontal bone and faci al bones. INTRACRANIAL: No intracranial air seen. CRIBIFORM PLATE: Grossly intact. CONCLUSION: Soft tissue swelling with no acute fracture or malalignment. Micky Banegas MD on July 27, 2017 at 3:17 Board Certified Radiologist. This report was verified electronically.
--- NOTE | 2017-07-27 03:25 | RADRPT ---
EXAM DATE/TIME: 07/27/2017 02:56 [facility] COMPARISON: CT ABDOMEN & PELVIS W CONTRAST, April 09, 2015, 23:29. INDICATIONS : Trauma. Fall. ORAL CONTRAST: No oral contrast ingested. RADIATION DOSE: 22.13 CTDIvol (mGy) MEDICAL HISTORY : Cerebrovascular disease. Cardiovascular disease Hypertension. SURGICAL HISTORY : Hysterectomy. Coronary artery stent. Gastrectomy. ENCOUNTER: Initial ACUITY: 1 day PAIN SCALE: 10/10 LOCATION: Bilateral lower quadrant TECHNIQUE: Volumetric scanning of the abdomen and pelvis was performed. Using automated exposure control and ad justment of the mA and/or kV according to patient size, radiation dose was kept as low as reasonably achievable to obtain optimal diagnostic quality images. DICOM format image data is available electro nically for review and comparison. FINDINGS: LOWER LUNGS: The visualized lower lungs are clear. LIVER: Homogeneous density without lesion. There is no dilation of the biliary tree. No calcified gallston es. SPLEEN: Normal size without lesion. PANCREAS: There are calcifications again noted along the pancreas. Pancreatic duct remains mildly prominent. Th is is unchanged. There is no surrounding inflammatory change. KIDNEYS: Normal in size and shape. There is no mass, stone, or hydronephrosis. ADRENAL GLANDS: Within normal limits. VASCULAR: There is no aortic aneurysm. BOWEL/MESENTERY: The stomach, small bowel, and colon demonstrate no acute abnormality. There is no free intraperitone al air or fluid. Post surgical changes noted involving the stomach with surgical clips and kwaku. ABDOMINAL WALL: Within normal limits. RETROPERITONEUM: There is no lymphadenopathy. BLADDER: No wall thickening or mass. REPRODUCTIVE: Within normal limits. INGUINAL: There is no lymphadenopathy or hernia. MUSCULOSKELETAL: Air are bilateral sacral insufficiency fractures right greater than left. There are old ununited frac tures of the superior and inferior pubic rami. No definite acute fracture is identified. There is mil d scoliosis.. CONCLUSION: 1. No evidence of visceral injury on this noncontrast exam. 2. Bilateral sacral insufficiency fractures right greater than left. 3. Bilateral ununited fractures of the superior and inferior pubic rami. 4. Postsurgical changes involving the stomach. 5. Stable appearance of the pancreas calcifications and prominence of the duct consistent with chroni c pancreatitis. Micky Banegas MD on July 27, 2017 at 3:19 Board Certified Radiologist. This report was verified electronically.
--- NOTE | 2017-07-27 03:33 | RADRPT ---
EXAM DATE/TIME: 07/27/2017 02:03 [facility] COMPARISON: CT CERVICAL SPINE W/O CONTRAST, July 11, 2017, 15:02. INDICATIONS : Trauma. Fall. RADIATION DOSE: 26.61 CTDIvol (mGy) MEDICAL HISTORY : Cardiovascular disease. Cerebrovascular disease. Hypertension. SURGICAL HISTORY : Fusion, cervical. ENCOUNTER: Initial ACUITY: 1 day PAIN SCALE: 10/10 LOCATION: Bilateral neck TECHNIQUE: Volumetric scanning of the cervical spine was performed. Multiplanar reconstructions i n the sagittal, coronal and oblique axial planes were performed. Using automated exposure control a nd adjustment of the mA and/or kV according to patient size, radiation dose was kept as low as reason ably achievable to obtain optimal diagnostic quality images. DICOM format image data is available e lectronically for review and comparison. FINDINGS: The sagittal reconstructions demonstrate normal alignment and normal prevertebral soft tissues. The d ens is intact and there is a normal atlantoaxial relationship. Patient again noted to be status post anterior cervical fusion at the C4-C6 level with intact screw plate fixation device. Fusion is solid. There are mild degenerative disc changes at the other levels. Degenerative changes noted involving t he atlantoaxial joint. The axial images demonstrate that the vertebral bodies and posterior elements are intact. The soft ti ssues are within normal limits. There is no evidence of acute fracture or malalignment. CONCLUSION: Negative trauma CT. Micky Banegas MD on July 27, 2017 at 3:29 Board Certified Radiologist. This report was verified electronically.
[2017-07-27] MEDS ORDERED: ACETAMINOPHEN 325 MG TAB PO ONE (04:00)
[2017-07-27] MEDS ORDERED: LIDOCAINE HCL 1% PF 30 ML VIAL INFIL ONE (04:30)
[2017-07-27 05:18] LABS: AUTOMATED NEUTROPHIL # 2.6 TH/MM3 (1.8-7.7); BASOPHIL # 0.1 TH/MM3 (0-0.2); BASOPHIL % 1.2 % (0.0-2.0); EOSINOPHIL # 0.2 TH/MM3 (0-0.4); HEMATOCRIT 32.5 % (35.0-46.0); HEMO FLAGS DIFF FINAL; LYMPH % 39.1 % (9.0-44.0); MEAN CELL VOLUME 81.4 FL (80.0-100.0); MEAN CORPUSCULAR HEMOGLOBIN 25.7 PG (27.0-34.0); MEAN CORPUSCULAR HGB CONC 31.6 % (32.0-36.0); MONO % 6.4 % (0.0-8.0); NEUT % 49.3 % (16.0-70.0); PLATELET COUNT 209 TH/MM3 (150-450); RED BLOOD COUNT 3.99 MIL/MM3 (4.00-5.30); RED CELL DISTRIBUTION WIDTH 18.7 % (11.6-17.2); WHITE BLOOD COUNT 5.2 TH/MM3 (4.0-11.0)
[2017-07-27 05:23] VITALS: BP 111/43; PULSE 66; RESP 14; O2SAT 96
[2017-07-27 05:25] LABS: BLOOD, URINE NEG (NEG); GLUCOSE,URINE NEG (NEG); KETONE, URINE NEG (NEG); NITRITE,URINE NEG (NEG); PH, URINE 6.5 (5.0-8.5)
[2017-07-27 05:33] LABS: APTT (PATIENT) 23.8 SEC (24.3-30.1); INTERNATIONAL NORMALIZED RATIO 1.1 RATIO; PROTHROMBIN TIME - PATIENT 10.9 SEC (9.8-11.6)
[2017-07-27 05:43] LABS: METHOD OF COLLECTION CLEAN CATCH; URINE COLOR YELLOW (YELLW/STRAW)
[2017-07-27 05:44] LABS: COMMENT (UR) CULT NOT INDICATED; CULTURE IF INDICATED CULT NOT INDICATED; SQUAMOUS EPITHELIAL CELL URINE 0-3 /hpf (0-5)
[2017-07-27 06:23] VITALS: BP 119/47; PULSE 69; RESP 16; O2SAT 94
[2017-07-27 06:34] VITALS: BP 140/64
== END 2017-07-27 08:02 | disposition home or self-care (01) ==
LOC: PHED 01:23
DX: S32.511A Fracture of superior rim of right pubis, initial encounter for closed fracture (principal); S32.512A Fracture of superior rim of left pubis, initial encounter for closed fracture; S01.01XA Laceration without foreign body of scalp, initial encounter; I11.0 Hypertensive heart disease with heart failure; I50.9 Heart failure, unspecified; F17.200 Nicotine dependence, unspecified, uncomplicated; E78.00 Pure hypercholesterolemia, unspecified; I25.10 Atherosclerotic heart disease of native coronary artery without angina pectoris; W01.0XXA Fall on same level from slipping, tripping and stumbling without subsequent striking against object, initial encounter; Z79.02 Long term (current) use of antithrombotics/antiplatelets; Z79.82 Long term (current) use of aspirin
CPT/HCPCS: 12002; 70450; 70486; 71010; 72125; 72170; 74176; 80048; 81001; 85025; 85610; 85730; 86850; 86900; 86901; 96365; 99285; J0690

== ENCOUNTER 2017-08-03 14:03 | Emergency (ER) | payer OTHER ==
[~2017-08-03] VITALS: Ht 154.9 cm; Wt 82.9 kg
[~2017-08-03 14:03] MED LIST changes: +DILA2TAB4 PO; +DILA30CA PO; -DIPH25CA PO; -FURO10IN IV PUSH
[2017-08-03 14:07] VITALS: BP 95/45; PULSE 72; RESP 18; TEMP 98.6; O2SAT 93
--- NOTE | 2017-08-03 15:10 | PD ---
HPI Chief Complaint: Wound/Suture/Staple Re-Check Time Seen by Provider: 14:31 Travel History International Travel<30 days: No Contact w/Intl Traveler<30days: No Traveled to known affect area: No History of Present Illness HPI 57-year-old female here for staple removal. She sustained a head injury and lack repair approximately 7 days ago. She denies Everone, headache or visual changes, nausea or vomiting. She has no medical complaint. PFSH Past Medical History Hx Anticoagulant Therapy: Yes Anemia: Yes Arthritis: Yes (RA) Asthma: Yes Autoimmune Disease: Yes Blood Disorders: Yes ( BLEEDING ULCER ) Bipolar Disorder: Yes Anxiety: Yes Depression: Yes Heart Rhythm Problems: Yes (palpitations) Cancer: No Cardiovascular Problems: Yes High Cholesterol: Yes Chemotherapy: No Chest Pain: No Congestive Heart Failure: Yes COPD: Yes Cerebrovascular Accident: Yes Diabetes: Yes Patient Takes Glucophage: No Diminished Hearing: No Endocrine: Yes Fibromyalgia: Yes Gastrointestinal Disorders: Yes (GI BLEEDING) GERD: Yes Genitourinary: No Headaches: Yes Hepatitis: Yes (HEP C) Hiatal Hernia: Yes (GERD) Herniated Disk: Yes Hypertension: Yes Immune Disorder: Yes (RA) Implanted Vascular Access Dvce: Yes Kidney Stones: No Medical other: Yes (CROHN'S, SEIZURES, ANEMIA, HEP C) Musculoskeletal: Yes (CHRONIC PAIN, DJD) Neurologic: Yes (BRAIN TUMOR) Psychiatric: Yes (HX POLYSUBSTANCE ABUSE) Reproductive: No Respiratory: Yes Immunizations Current: No Migraines: No Myocardial Infarction: No Pancreatitis: Yes Radiation Therapy: Yes (2003 to thyroid) Renal Failure: No Seizures: Yes Sleep Apnea: Yes Thyroid Disease: Yes Ulcer: Yes (BLEEDING ULCER) Tetanus Vaccination: < 5 Years Influenza Vaccination: Yes PNEUMOCCOCAL Vaccine (Year): 2010 ?: Not Menopausal: Yes : 2 Para: 2 Miscarriage: 0 : 0 Tubal Ligation: Yes Past Surgical History Abdominal Surgery: Yes (GASTRECTOMY) AICD: No Appendectomy: No Arteriovenous Shunt: No Body Medical Devices: METAL PLATE IN NECK, PAIN PUMPED - DILAUDID Cardiac Surgery: Yes (STENT) Cholecystectomy: No Coronary Stent: Yes Ear Surgery: No Endocrine Surgery: Yes (THYROID RADIATION IN ) Eye Surgery: No Genitourinary Surgery: Yes Gynecologic Surgery: Yes (LUMPECTOMY) Hysterectomy: Yes Insulin Pump: No Joint Replacement: No Neurologic Surgery: Yes (CERVICAL FUSION ) Oral Surgery: Yes (GUM SX, TRACH) Pacemaker: No Thoracic Surgery: No Other Surgery: Yes ( trach 2007; breast tumor removed 1998, PAIN PUMP-DILAUDID) Social History Alcohol Use: No Tobacco Use: Yes (08/26 PPD and also use the vapor E- cigarette) Substance Use: No (DENIES ) Allergies-Medications (Allergen,Severity, Reaction): Coded Allergies: amcinonide (Verified Allergy, Severe, SEIZURE, 08/03/17) beclomethasone (Verified Allergy, Severe, SEIZURE, 08/03/17) betamethasone (Verified Allergy, Severe, SEIZURE, 08/03/17) bupropion (Verified Allergy, Severe, seizure, 08/03/17) celecoxib (Verified Allergy, Severe, itch, 08/03/17) cyclobenzaprine (Verified Allergy, Severe, SEIZURES, 08/03/17) desoximetasone (Verified Allergy, Severe, SEIZURE, 08/03/17) dexamethasone (Verified Allergy, Severe, SEIZURE, 08/03/17) fludrocortisone (Verified Allergy, Severe, SEIZURE, 08/03/17) flunisolide (Verified Allergy, Severe, SEIZURE, 08/03/17) fluocinolone acetonide (Verified Allergy, Severe, SEIZURE, 08/03/17) fluocinonide (Verified Allergy, Severe, SEIZURE, 08/03/17) fluorometholone (Verified Allergy, Severe, SEIZURE, 08/03/17) flurandrenolide (Verified Allergy, Severe, SEIZURE, 08/03/17) fluticasone (Verified Allergy, Severe, SEIZURE, 08/03/17) PATIENT STATES NOT ALLERGIC TO THIS MED fluticasone furoate (Verified Allergy, Severe, SEIZURE, 08/03/17) PATIENT STATES NOT ALLERGIC TO THIS MED haloperidol (Verified Allergy, Severe, SEIZURE, 08/03/17) hydrocortisone (Verified Allergy, Severe, SEIZURE, 08/03/17) methylprednisolone (Verified Allergy, Severe, SEIZURE, 08/03/17) mometasone furoate (Verified Allergy, Severe, SEIZURE, 08/03/17) prednisolone (Verified Allergy, Severe, SEIZURE, 08/03/17) prednisone (Verified Allergy, Severe, SEIZURE, 08/03/17) pregabalin (Verified Allergy, Severe, swelling, 08/03/17) salmeterol (Verified Allergy, Severe, "WHEEZES", 08/03/17) PATIENT STATES NOT ALLERGIC TO THIS MED triamcinolone (Verified Allergy, Severe, SEIZURE, 08/03/17) valdecoxib (Verified Allergy, Severe, itch, 08/03/17) diclofenac (Verified Adverse Reaction, Severe, ABD PAIN, 08/03/17) etodolac (Verified Adverse Reaction, Severe, ABD PAIN, 08/03/17) flurbiprofen (Verified Adverse Reaction, Severe, ABD PAIN, 08/03/17) ibuprofen (Verified Adverse Reaction, Severe, ABD PAIN, 08/03/17) indomethacin (Verified Adverse Reaction, Severe, ABD PAIN, 08/03/17) ketoprofen (Verified Adverse Reaction, Severe, ABD PAIN, 08/03/17) ketorolac (Verified Adverse Reaction, Severe, ABD PAIN, 08/03/17) naproxen (Verified Adverse Reaction, Severe, ABD PAIN, 08/03/17) oxaprozin (Verified Adverse Reaction, Severe, ABD PAIN, 08/03/17) Reported Meds & Prescriptions Reported Meds & Active Scripts Active Reported Dilaudid (Hydromorphone HCl) 2 Mg Tab 2 Mg PO Q4H PRN Dilantin (Phenytoin Extended) 30 Mg Cap 30 Mg PO TID Tylenol (Acetaminophen) 325 Mg Tab 325 Mg PO ONCE PRN Liothyronine (Liothyronine Sodium) 50 Mcg Tab 50 Mcg PO DAILY Synthroid (Levothyroxine Sodium) 137 Mcg Tab 137 Mcg PO DAILY Furosemide 40 Mg Tab 40 Mg PO DAILY Crestor (Rosuvastatin Calcium) 20 Mg Tab 20 Mg PO DAILY Promethazine (Promethazine HCl) 12.5 Mg Tab 12.5 Mg PO Q6H PRN Pantoprazole (Pantoprazole Sodium) 40 Mg Tab 40 Mg PO DAILY Zofran (Ondansetron HCl) 4 Mg Tab 4 Mg PO Q8HR PRN Metoprolol Succinate ER 24 HR (Metoprolol Succinate) 50 Mg Tab 100 Mg PO DAILY Keppra (Levetiracetam) 500 Mg Tab 500 Mg PO BID Diazepam 5 Mg Tab 5 Mg PO TID PRN Plavix (Clopidogrel Bisulfate) 75 Mg Tab 75 Mg PO DAILY Albuterol Neb (Albuterol Sulfate) 2.5 Mg/0.5 Ml Neb 2.5 Mg NEB Q4HR NEB PRN Note: The Albuterol Sulfate Inhalation Solution is concentrated and must be diluted. Read complete instructions carefully before using. Proair Hfa 8.5 GM Inh (Albuterol Sulfate) 90 Mcg/Act Aer 2 Puff INH Q4-6H PRN 108 mcg/actuation Advair Diskus Inh (Fluticasone-Salmeterol Inh) 250-50 Mcg/Blist Aer 1 Puff INH BID Rinse mouth after use. Review of Systems Except as stated in HPI: all other systems reviewed are Neg General / Constitutional: No: Fever HENT: No: Headaches Physical Exam Narrative GENERAL: Alert female. SKIN: Warm and dry. HEAD: Normocephalic. 3 cm well-healed laceration to the top of the scalp. No erythema or signs of bacterial infection. Torsten in place. EYES: No injection or drainage. NECK: Supple, trachea midline. Neuro: Awake and alert. Ambulatory with steady gait. Data Data Last Documented VS Vital Signs Date Time Temp Pulse Resp B/P (MAP) Pulse Ox O2 Delivery O2 Flow Rate FiO2 08/03/17 14:07 98.6 72 18 95/45 (62) 93 MDM Medical Decision Making Medical Screen Exam Complete: Yes Emergency Medical Condition: Yes Differential Diagnosis Staple removal, wound recheck, wound infection Narrative Course 57 -year-old female here for staple removal. No signs of bacterial infection. Metter removed. Diagnosis Primary Impression: Removal of staple Referrals: Primary Care Physician Disposition: 01 DISCHARGE HOME Condition: Stable Crystal James Aug 03, 2017 15:10
== END 2017-08-03 15:19 | disposition home or self-care (01) ==
LOC: PHEFT 14:03
DX: S01.01XD Laceration without foreign body of scalp, subsequent encounter (principal); X58.XXXD Exposure to other specified factors, subsequent encounter; Z48.02 Encounter for removal of sutures
CPT/HCPCS: 99281